=== PATIENT | male | born 1945 | race Caucasian/White ===

== ENCOUNTER 2020-06-28 16:40 | Inpatient (IN) | payer OTHER, MEDICARE ==
[~2020-06-28] VITALS: Ht 177.8 cm; Wt 88.9 kg
[2020-06-28] MEDS ORDERED: GLUCOTROL5 MG PO (16:52)
[2020-06-28] MEDS ORDERED: I-Vite1 EACH PO (16:52)
[2020-06-28] MEDS ORDERED: METF500 PO (16:52)
[2020-06-28] MEDS ORDERED: LISI5 PO (16:53)
[2020-06-28 17:15] LABS: BASOPHILS ABSOLUTE AUTO 0.06 K/mm3 (0.00-0.23); BASOPHILS PERCENT AUTO 1 % (0-2); EOSINOPHILS ABSOLUTE AUTO 0.13 K/mm3 (0.00-0.68); EOSINOPHILS PERCENT AUTO 1 % (0-6); Hematocrit 41.5 % (37.0-53.0); Hemoglobin 13.7 g/dL (13.5-17.5); IMMATURE GRAN ABSOLUTE AUTO 0.09 K/mm3 (0.00-0.10); IMMATURE GRAN PERCENT AUTO 1 % (0-1); LYMPHOCYTES PERCENT AUTO 21 % (21-46); MONOCYTES ABSOLUTE AUTO 0.92 K/mm3 (0.16-1.47); MONOCYTES PERCENT AUTO 8 % (4-13); Mean Corpuscular HGB 31.9 pg (26.0-34.0); Mean Corpuscular Volume 97 fL (80-100); Mean Platelet Volume 10.1 fL (9.1-12.4); NEUTROPHILS ABSOLUTE AUTO 8.36 K/mm3 (1.96-9.15); NEUTROPHILS PERCENT AUTO 69 % (41-73); Platelet Count 215 K/mm3 (150-400); RDW Coefficient Variation 12.6 % (11.7-14.2); RDW Standard Deviation 44.1 fL (35.1-46.3); Red Blood Cell Count 4.29 M/mm3 (4.30-5.90); White Blood Cell Count 12.16 K/mm3 (4.00-11.30)
[2020-06-28 17:31] LABS: Alanine Aminotransfer (ALT/SGP 32 U/L (12-78); Albumin, Blood 4.1 g/dL (3.4-5.0); Albumin/Globulin Ratio 1.1 (0.8-1.8); Alk Phos 66 U/L (50-136); Anion Gap 9 mmol/L (6-16); Aspartate Aminotrans (AST/SGOT 33 U/L (12-37); Bilirubin, Total 0.4 mg/dL (0.1-1.0); Blood Urea Nitrogen 20 mg/dL (8-24); Bun/Creatinine Ratio 23.8 (12.0-20.0); CO2, Blood 20 mmol/L (21-32); Calcium, Blood 9.3 mg/dL (8.5-10.1); Chloride, Blood 110 mmol/L (98-108); Creatinine, Blood 0.84 mg/dL (0.60-1.20); Ethanol (Alcohol), Blood, Med <3 mg/dL; Globulin, Blood 3.6 g/dL (2.2-4.0); Glomerular Filtration Rate >60 (60-); Glucose, Blood 236 mg/dL (70-99); Potassium, Blood 3.8 mmol/L (3.5-5.5); Sodium, Blood 139 mmol/L (136-145); Total Protein, Blood 7.7 g/dL (6.4-8.2)
[2020-06-28] MEDS ORDERED: GLIP5 PO (18:26)
--- NOTE | 2020-06-29 08:04 | NUR ---
SUMMARY PT ADMITTED S/P TRACTOR ACCIDENT. SEE ADMIT HX. PT RECEIVING IV AND PO PAIN MEDS.OOB WITH ASSIST FOR BRP. NAUSEA X1 MED WITH ZOFRAN. EQUAL RISE AND FALL BILAT WITH RESP.SHALLOW BREATHING DUE TO PAIN.RAZ.
--- NOTE | 2020-06-29 18:35 | NUR ---
PT HAS BEEN STABLE THIS SHIFT. PT REAMINS IN A LOT OF PAIN, MEDICATION ORDERS CHANGED THIS AM, PT REPORTS MORE EFFECTIVE. TAUGHT SPLINT COUGHING. PT COMPLIANT TO USING SPIROMETRY ENCOURAGED. ABLE TO WEAN O2 TO 1L. CONT BIOX REMAINS IN PLACE. BLOOD SUGARS ELEVATED, METFORMIN CONT TO HOLD BUT TAKING GLIPIZIDE. PT HAS OVERALL POOR APPETITE. DRINKING FLUIDS AND VOIDING WELL. PT WORKED WELL WITH NURSING STAFF TO AMBULATE AND SHOWER THIS AM. MIN ASSIST OOB. USES CALL LIGHT APPROPRIATELY NEEDED.
--- NOTE | 2020-06-30 06:07 | NUR ---
SHIFT SUMMARY BROKEN RIBS. AA0X4. PT REMAINED ON OXYGEN T/O NIGHT. 1.5 L NC. WHEN PT STOOD TO WALK TO BATHROOM AND RETURNED TO BED HE ATTEMPTED TO USE INCENTIVE SPIROMETER PT STARTED COUGHING AND REQUIRED AND INCREASE TO 2.5 L TO RECOVER. AFTER A FEW MINUTES RECOVERED AND WAS ABLE TO TITRATE BACK DOWN. LUNG SOUNDS CLEAR IN ALL [place] THIS AM BUT DIMINISHED IN RLL. PT HAS SOME DIFFICULTY COUGHING TO CLEAR PHLEGM. REPORTS NO PAIN WHEN HE IS NOT HAVING COUGHING FITS. PT STATES STRONG DESIRE TO DISCHARGE AND START WORK ON TUESDAY.
[2020-06-30] MEDS ORDERED: Percocet 5-3251 EACH PO ×2 (10:04→10:31)
[2020-06-30] MEDS ORDERED: Naproxen250 MG PO (10:04)
[2020-06-30] MEDS ORDERED: Robaxin-750750 MG PO (10:33)
--- NOTE | 2020-06-30 14:31 | NUR ---
DESATS ATTEMPTED ROOM AIR TWICE THIS AFTERNOON. PT UNABLE TO MAINTAIN 02 SATS >90%. PT DESATS TO 87-89%. ENCOURAGING MOBILITY AND I/S USE AND PT UP TO CHAIR COUGHING AND DEEP BREATHING. 0.5-1L 02 VIA NC TO MAINTAIN SATS >90%. WILL CONT TO PULMONARY TOILET.
--- NOTE | 2020-06-30 16:02 | NUR ---
SHIFT SUMMARY CONTINUING PULMONARY TOILET WITH PT. ENCOURAGING MOBILITY, I/S USE, COUGHING AND DEEP BREATHING. PT UP TO CHAIR TODAY. MULTIPLE ATTEMPTS ON RA TODAY AND SATS ONLY BETWEEN 87-89%. CURRENTLY WEANED TO 0.5L VIA NC AND SATS BETWEEN 90-92%. CONT BIOX PER ORDERS. ABD BINDER IN PLACE FOR SUPPORT AND 2 PERCOCETS FOR PAIN PRN. LUNGS CLEAR T/O, BUT SLIGHTLY DIMINISHED IN THE BASES. PT ALERT, ORIENTED, AND PLEASANT. POSSIBLE DISCHARGE HOME TOMORROW IF RESPIRATORY STATUS IMPROVES. CALL LIGHT WITHIN REACH.
--- NOTE | 2020-07-01 04:27 | NUR ---
SHIFT SUMMARY PT A/O X4, NEEDS ASSISTANCE TO GET OUT OF BED D/T PAIN FROM RIB FX'S, BUT ONCE UP PT IS IND IN ROOM AND TO BATHROOM. PAIN MANAGED WITH PO PAIN MED AND MUSCLE RELAXER. PT TOLERATING PO INTAKE AND VOIDING. HAS BEEN ON 0.5-1L O2 MOST OF SHIFT; WEANED OFF AT ABOUT 0300 AND MAINTAINING SAT ABOVE 92% ON RA. BIOX IN PLACE. NO ACUTE CHANGES.
--- NOTE | 2020-07-01 05:26 | NUR ---
O2 BACK ON TO MAINTAIN ABOVE 92% WHILE ASLEEP; O2 SAT ABOVE 92% ON RA WHILE AWAKE BUT DROPS TO 87% WHILE ASLEEP ON RA. CURRENTLY ON 1L.
--- NOTE | 2020-07-01 08:51 | NUR ---
DISCHARGE PT EDUCATED ON AND RECEIVED PRINTED DISCHARGE INSTRUCTIONS AND VERBALIZED AN UNDERSTANDING. SATS >92% ON RA. HARD RX FOR PERCOCET + ROBAXIN GIVEN TO PT. IV DC'D. INCENTIVE SPIROMETER PACKED UP WITH PT. PT GATHERING PERSONAL BELONGINGS AND WAITING FOR TO PICK HIM UP.
== END 2020-07-01 09:00 | disposition home or self-care (01) | DRG 185 ==
LOC: ER 16:40 → SURS 16:41 → ER 19:27 → SURS 19:27
PROVIDERS: Emergency Medicine; ADMIT Surgery
DX: S22.41XA Multiple fractures of ribs, right side, initial encounter for closed fracture (principal); I10 Essential (primary) hypertension; E11.9 Type 2 diabetes mellitus without complications; R40.2412 Glasgow coma scale score 13-15, at arrival to emergency department; S40.011A Contusion of right shoulder, initial encounter; S00.03XA Contusion of scalp, initial encounter; V89.0XXA Person injured in unspecified motor-vehicle accident, nontraffic, initial encounter; Z79.84 Long term (current) use of oral hypoglycemic drugs
CPT/HCPCS: 36415; 70450; 71260; 80053; 82947; 85025; 90471; 90714; 94762; 96361; 96372; 96374-59; 96375-59; 96376; 99285-25; G0378; G0480; J1170; J1650; J2405; J7030; Q9967

== ENCOUNTER 2020-12-01 12:12 | Emergency (ER) | payer MEDICARE, OTHER ==
[~2020-12-01] VITALS: Ht 177.8 cm; Wt 88.5 kg
[~2020-12-01 12:12] MED LIST: GLIP5 PO; GLUCOTROL5 MG PO; I-Vite1 EACH PO; LISI5 PO; METF500 PO; Naproxen250 MG PO; Percocet 5-3251 EACH PO; Robaxin-750750 MG PO
[2020-12-01] MEDS ORDERED: POTCHL20ER PO (14:12)
[2020-12-01] MEDS ORDERED: FURO40 PO (14:12)
== END 2020-12-01 14:28 | disposition home or self-care (01) ==
LOC: ER 12:12
DX: I11.0 Hypertensive heart disease with heart failure (principal); I50.9 Heart failure, unspecified; E11.9 Type 2 diabetes mellitus without complications; Z79.84 Long term (current) use of oral hypoglycemic drugs; Z79.899 Other long term (current) drug therapy; Z87.891 Personal history of nicotine dependence
CPT/HCPCS: 84484; 93005; 93010; 99285-25; A9270

== ENCOUNTER 2021-06-25 17:55 | Inpatient (IN) | payer OTHER ==
[~2021-06-25] VITALS: Ht 175.3 cm; Wt 81.2 kg
[~2021-06-25 17:55] MED LIST changes: +FURO40 PO; -METF500 PO; +POTCHL20ER PO
[2021-06-25 18:46] LABS: BASOPHILS ABSOLUTE AUTO 0.04 K/mm3 (0.00-0.23); BASOPHILS PERCENT AUTO 1 % (0-2); EOSINOPHILS ABSOLUTE AUTO 0.11 K/mm3 (0.00-0.68); EOSINOPHILS PERCENT AUTO 2 % (0-6); Hematocrit 37.1 % (37.0-53.0); Hemoglobin 12.2 g/dL (13.5-17.5); IMMATURE GRAN ABSOLUTE AUTO 0.02 K/mm3 (0.00-0.10); IMMATURE GRAN PERCENT AUTO 0 % (0-1); LYMPHOCYTES ABSOLUTE AUTO 1.18 K/mm3 (0.84-5.20); LYMPHOCYTES PERCENT AUTO 17 % (21-46); MONOCYTES ABSOLUTE AUTO 0.88 K/mm3 (0.16-1.47); MONOCYTES PERCENT AUTO 12 % (4-13); Mean Corpuscular HGB 31.2 pg (26.0-34.0); Mean Corpuscular HGB Conc 32.9 g/dL (31.5-36.5); Mean Corpuscular Volume 95 fL (80-100); Mean Platelet Volume 10.1 fL (9.1-12.4); NEUTROPHILS ABSOLUTE AUTO 4.86 K/mm3 (1.96-9.15); NEUTROPHILS PERCENT AUTO 69 % (41-73); Platelet Count 201 K/mm3 (150-400); RDW Coefficient Variation 13.4 % (11.7-14.2); RDW Standard Deviation 46.3 fL (35.1-46.3); Red Blood Cell Count 3.91 M/mm3 (4.30-5.90); White Blood Cell Count 7.09 K/mm3 (4.00-11.30)
[2021-06-25 18:59] LABS: Albumin, Blood 3.7 g/dL (3.4-5.0); Albumin/Globulin Ratio 0.9 (0.8-1.8); Bilirubin, Total 0.5 mg/dL (0.1-1.0); Calcium, Blood 9.3 mg/dL (8.5-10.1); Creatinine, Blood 1.2 mg/dL (0.60-1.20); Globulin, Blood 3.9 g/dL (2.2-4.0); Magnesium, Blood 2.4 mg/dL (1.6-2.4); Potassium, Blood 4.3 mmol/L (3.5-5.5); Total Protein, Blood 7.6 g/dL (6.4-8.2)
[2021-06-25] MEDS ORDERED: CYCLOBENZAPRINE5 MG PO (20:50)
[2021-06-25] MEDS ORDERED: JARDIANCE25 MG PO (20:51)
[2021-06-25] MEDS ORDERED: FURO40 PO (20:52)
[2021-06-25] MEDS ORDERED: Norco 5-325 Ta1 EACH PO (20:52)
[2021-06-25] MEDS ORDERED: INSULANPEN SC (20:53)
[2021-06-25] MEDS ORDERED: MAGNESIUM OXID400 M1 PO (20:54)
[2021-06-25] MEDS ORDERED: TOPROL XL25 MG PO (20:55)
[2021-06-25] MEDS ORDERED: METF500C PO (20:56)
[2021-06-25] MEDS ORDERED: POTA10T PO (20:57)
[2021-06-25] MEDS ORDERED: SPIR25 PO (20:58)
[2021-06-25] MEDS ORDERED: TORSE20 PO (20:58)
[2021-06-25] MEDS ORDERED: PRESERVISION A1 EAC1 PO (20:59)
[2021-06-25] MEDS ORDERED: ERGO400 PO (20:59)
[2021-06-25] MEDS ORDERED: MIRALAX17 G3 PO (21:00)
[2021-06-26 02:28] LABS: Bun/Creatinine Ratio 19.1 (12.0-20.0); Creatinine, Blood 1.41 mg/dL (0.60-1.20); Troponin I 0.216 ng/mL (0.000-0.040)
--- NOTE | 2021-06-26 05:45 | NUR ---
SHIFT SUMMARY- PT. NEW ADMIT FROM ED. A&OX4, INDEP IN THE ROOM. HAD NO COMPLAINTS OF PAIN OR DISCOMFORT T/O THE NIGHT. RESTED QUIETLY IN BED DURING THE NIGHT, NO APPARENT DISTRESS NOTED. VSS. CALL LIGHT WITHIN REACH AND SIDE RAILS UPX2. WILL CONT TO MONITOR.
--- NOTE | 2021-06-26 08:31 | NUR ---
spoke to waylon min tele.
--- NOTE | 2021-06-26 10:28 | NUR ---
PT A/O X3 PLEASANT TALKATIVE, PT DENIES CHEST PAIN, PRESSURE, TIGHTNESS. NO TELE. VERIFIED WITH DR LOVETT. H/R REG, MURMER PRESENT. LUNGS CLEAR T/O RESP EASY, UNLABORED. ON RA. BT X4 LAST BM YEST PER PT. VOIDS BATHROOM. INDEPENDANT.BED IN LOW POSITIOIN, CALL LITE IN REACH, CALLS APPROP
--- NOTE | 2021-06-26 18:40 | NUR ---
PT PLEASANT TODAY. NO C.O CHEST PAIN OR PRESSURE. LIME SLUDGE KILN OPERATOR IN AND DISCUSSED STRESS TEST FOR TOMORROW. HOWEVER, PT AND DR LOVETT STATES IS DONE THIS WEEK. DR WILL LOCATE RESULTS AND OKAY NO STRESS TEST TOMORROW. WILL LOOK FOR ORDERS. PT MAY RUN ELEVATED TROPONIN AT BASELINE PER DR LOVETT. NO NEW ORDERS AT THIS TIME. PT DOES ADMIT TO 4L O2 [facility] AT [id number]. CALLED RT FOR PLACEMENT. PT DOES NOT HAVE HOME UNIT AVAIL. BED IN LOW POSITION, CALL LITE IN REACH, CALLS APPROP
--- NOTE | 2021-06-27 00:29 | NUR ---
Tiago has denied chest pain or sob. Abd soft with hyperactive BTs but pt states miralax working. Dressing to rt lat foot dry and intact. Will change after shower in am.
--- NOTE | 2021-06-27 05:42 | NUR ---
Tiago states did not sleep well tonight. Denies chest pain or sob. No results from Miralax, given another dose this am.
[2021-06-27 05:59] LABS: Bun/Creatinine Ratio 23.6 (12.0-20.0); Calcium, Blood 9.3 mg/dL (8.5-10.1); Creatinine, Blood 1.27 mg/dL (0.60-1.20)
[2021-06-27] MEDS ORDERED: ACET325 PO (13:58)
[2021-06-27] MEDS ORDERED: LISI5 PO (13:59)
--- NOTE | 2021-06-27 15:35 | NUR ---
REVIEWED DISCHARGE WITH PT. IV PULLED INTACT BY ROBERT WASHINGTON. NO TELE. PT VERVALIZED UNDERSTANDING MEDS AND INST. WALKED PT TO DOOR AT 1530
== END 2021-06-27 17:09 | disposition home or self-care (01) | DRG 291 ==
LOC: ER 17:55 → MEDS 17:56
PROVIDERS: Family Medicine; Internal Medicine; Physician Assistant; ADMIT Internal Medicine
PROC: 5A09357 Assistance with Respiratory Ventilation, Less than 24 Consecutive Hours, Continuous Positive Airway Pressure (ICD-10-PCS; principal; 2021-06-27)
DX: I13.0 Hypertensive heart and chronic kidney disease with heart failure and stage 1 through stage 4 chronic kidney disease, or unspecified chronic kidney disease (principal); I50.23 Acute on chronic systolic (congestive) heart failure; N18.9 Chronic kidney disease, unspecified; E11.22 Type 2 diabetes mellitus with diabetic chronic kidney disease; E11.621 Type 2 diabetes mellitus with foot ulcer; L97.519 Non-pressure chronic ulcer of other part of right foot with unspecified severity; I25.10 Atherosclerotic heart disease of native coronary artery without angina pectoris; R94.39 Abnormal result of other cardiovascular function study; Z66 Do not resuscitate; Z87.891 Personal history of nicotine dependence; Z79.899 Other long term (current) drug therapy; Z79.4 Long term (current) use of insulin; Z79.891 Long term (current) use of opiate analgesic
CPT/HCPCS: 36415; 80048; 80053; 82947; 83036; 83735; 83880; 84484; 85025; 93005; 93010; 94660; 99285-25; A9270; G0378; J1650

== ENCOUNTER 2021-09-10 11:36 | Observation (INO) | payer OTHER ==
[~2021-09-10] VITALS: Ht 175.3 cm; Wt 86.5 kg
[~2021-09-10 11:36] MED LIST changes: +ACET325 PO; +ATHLETE'S FOO35.4 GM TOP; +ATOR20 PO; +CYCLOBENZAPRINE5 MG PO; +INSULANPEN SC; +JARDIANCE25 MG PO; +MAGNESIUM OXID400 M1 PO; +METF500C PO; +MIRALAX17 G3 PO; +Norco 5-325 Ta1 EACH PO; +POTA10T PO; +PRESERVISION A1 EAC1 PO; +SPIR25 PO; +TOPROL XL25 MG PO; +TORSE20 PO; +Vitamin D1000 UNI1 PO
[2021-09-10 12:30] LABS: BASOPHILS ABSOLUTE AUTO 0.07 K/mm3 (0.00-0.23); BASOPHILS PERCENT AUTO 1 % (0-2); EOSINOPHILS ABSOLUTE AUTO 0.15 K/mm3 (0.00-0.68); EOSINOPHILS PERCENT AUTO 2 % (0-6); Hematocrit 43.6 % (37.0-53.0); Hemoglobin 14.2 g/dL (13.5-17.5); IMMATURE GRAN ABSOLUTE AUTO 0.03 K/mm3 (0.00-0.10); IMMATURE GRAN PERCENT AUTO 0 % (0-1); LYMPHOCYTES ABSOLUTE AUTO 1.81 K/mm3 (0.84-5.20); LYMPHOCYTES PERCENT AUTO 24 % (21-46); MONOCYTES ABSOLUTE AUTO 0.61 K/mm3 (0.16-1.47); MONOCYTES PERCENT AUTO 8 % (4-13); Mean Corpuscular HGB 31.6 pg (26.0-34.0); Mean Corpuscular HGB Conc 32.6 g/dL (31.5-36.5); Mean Corpuscular Volume 97 fL (80-100); Mean Platelet Volume 9.5 fL (9.1-12.4); NEUTROPHILS ABSOLUTE AUTO 4.83 K/mm3 (1.96-9.15); NEUTROPHILS PERCENT AUTO 65 % (41-73); Platelet Count 230 K/mm3 (150-400); RDW Coefficient Variation 14.7 % (11.7-14.2); RDW Standard Deviation 52.7 fL (35.1-46.3)
[2021-09-10 12:57] LABS: Albumin, Blood 3.6 g/dL (3.4-5.0); Albumin/Globulin Ratio 0.9 (0.8-1.8); Bilirubin, Total 1.1 mg/dL (0.1-1.0); Bun/Creatinine Ratio 24.4 (12.0-20.0); Calcium, Blood 9.7 mg/dL (8.5-10.1); Creatinine, Blood 1.27 mg/dL (0.60-1.20); Globulin, Blood 4.2 g/dL (2.2-4.0); Total Protein, Blood 7.8 g/dL (6.4-8.2); Troponin I 0.227 ng/mL (0.000-0.040)
--- NOTE | 2021-09-10 18:18 | NUR ---
PT STILL HAVING SOB, IV ANTIBIOTICS D/C'D, UP IN RECLINER, DESATS WITH ACTIVITY. CONTINUE ON HIGH STANISLAV AND NON REBREATHER MASK NEEDED, HIGH STANISLAV SETTING 50L 100%, VISITED WITH FAMILY.NO ACUTE DISTRESS NOTED.
--- NOTE | 2021-09-10 18:33 | NUR ---
PT ADMITTED FROM ED INTO RM 326, ORIENTED TO ROOM AND CALL LIGHT, DENIED PAIN,ASSEEMENT DONE, MEDS RECONCILATION PASSED ON NEXT SHIFT PT NEEDED TO EAT.SOME REDNESS, SCABBED AREA NOTED ON RT FOOT, PICS IN CHART FOR THOROUGH VIEW. PT AAOX4, NO ACUTE DISTRESS NOTED. HX OF DM 2, HTN,HEART FAILURE,ANEMIA. CALL LIGHT WITHIN RANGE, MONITORING CONTNIUES.
[2021-09-11 05:20] LABS: BASOPHILS ABSOLUTE AUTO 0.06 K/mm3 (0.00-0.23); BASOPHILS PERCENT AUTO 1 % (0-2); EOSINOPHILS ABSOLUTE AUTO 0.15 K/mm3 (0.00-0.68); EOSINOPHILS PERCENT AUTO 2 % (0-6); Hematocrit 39.8 % (37.0-53.0); Hemoglobin 12.9 g/dL (13.5-17.5); IMMATURE GRAN ABSOLUTE AUTO 0.02 K/mm3 (0.00-0.10); IMMATURE GRAN PERCENT AUTO 0 % (0-1); LYMPHOCYTES ABSOLUTE AUTO 2.09 K/mm3 (0.84-5.20); LYMPHOCYTES PERCENT AUTO 29 % (21-46); MONOCYTES ABSOLUTE AUTO 0.69 K/mm3 (0.16-1.47); MONOCYTES PERCENT AUTO 10 % (4-13); Mean Corpuscular HGB 30.9 pg (26.0-34.0); Mean Corpuscular HGB Conc 32.4 g/dL (31.5-36.5); Mean Corpuscular Volume 95 fL (80-100); Mean Platelet Volume 9.8 fL (9.1-12.4); NEUTROPHILS ABSOLUTE AUTO 4.26 K/mm3 (1.96-9.15); NEUTROPHILS PERCENT AUTO 59 % (41-73); Platelet Count 213 K/mm3 (150-400); RDW Coefficient Variation 14.7 % (11.7-14.2); RDW Standard Deviation 50.6 fL (35.1-46.3); Red Blood Cell Count 4.17 M/mm3 (4.30-5.90); White Blood Cell Count 7.27 K/mm3 (4.00-11.30)
--- NOTE | 2021-09-11 05:26 | NUR ---
PT IS ANXIOUS AT TIMES BUT COMPLIANT. O2 INCREASED TO 4L NC. SAT 94% ON CONT PULSE OX. TELE SR 1ST DEGREE BLOCK. DENIES CHEST PAIN OR PALPITATION. WILL CONTINUE TO MONITOR.
[2021-09-11 05:54] LABS: Albumin/Globulin Ratio 0.8 (0.8-1.8); Bilirubin, Total 0.8 mg/dL (0.1-1.0); Bun/Creatinine Ratio 24.5 (12.0-20.0); Calcium, Blood 9.5 mg/dL (8.5-10.1); Creatinine, Blood 1.51 mg/dL (0.60-1.20); Globulin, Blood 3.9 g/dL (2.2-4.0); Magnesium, Blood 2.4 mg/dL (1.6-2.4); Potassium, Blood 3.7 mmol/L (3.5-5.5); Total Protein, Blood 6.9 g/dL (6.4-8.2)
--- NOTE | 2021-09-11 16:34 | NUR ---
SHIFT SUMMARY PT IS AOX4. PT DENIES PAIN, N/V, SOB. PT EVALUATED BY CARDIOLOGY TODAY WHO DETERMINED PT WILL BE TRANSFERRED TO [facility] FOR VALVE PLACEMENT. PT APPETITE IS GOOD. PT IS ONE ASSIST FOR TRANSFERS. PT IS IN BED, CALL LIGHT IN REACH, LOW POSITION.
[2021-09-11 17:17] LABS: SARS-Cov-2 (COVID-19) PCR, MMC NEGATIVE (NEGATIVE)
--- NOTE | 2021-09-11 18:36 | NUR ---
COBRA TRANSFER THIS RN GAVE REPORT TO FELIX SCANLON AT [facility] FOR TRANSFER. PT HAS IV IN LEFT AC FOR TRANSFER. PT WILL NOT BRING ANY MEDICAL EQUIPMENT AND SATS ARE 100% ON RA. THIS RN LEFT A MESSAGE TO PT'S ABOUT PT'S NEW ROOM NUMBER IN [place], [id number]. PT IS CURRENTLY IN BED, AWAITING TRANSPORT.
--- NOTE | 2021-09-11 19:42 | NUR ---
PT was dc cobra transfer with EMS medical transport to [place]. personal belongings sent.
== END 2021-09-11 19:30 | disposition short-term general hospital (02) ==
LOC: ER 11:36 → MEDS 11:37
PROVIDERS: Nurse Practitioner Acute Care; Physician Assistant; ADMIT Family Medicine
DX: I13.0 Hypertensive heart and chronic kidney disease with heart failure and stage 1 through stage 4 chronic kidney disease, or unspecified chronic kidney disease (principal); I50.23 Acute on chronic systolic (congestive) heart failure; I08.2 Rheumatic disorders of both aortic and tricuspid valves; E11.22 Type 2 diabetes mellitus with diabetic chronic kidney disease; N18.30 Chronic kidney disease, stage 3 unspecified; I27.20 Pulmonary hypertension, unspecified; I25.10 Atherosclerotic heart disease of native coronary artery without angina pectoris; R77.8 Other specified abnormalities of plasma proteins; D64.9 Anemia, unspecified; G47.33 Obstructive sleep apnea (adult) (pediatric); E78.5 Hyperlipidemia, unspecified; Z79.4 Long term (current) use of insulin; Z20.822 Contact with and (suspected) exposure to COVID-19
CPT/HCPCS: 36415; 71046; 80053; 82947; 83735; 83880; 84484; 85025; 93005; 93010; 94762; 96374; 99285-25; A9270; C8929; J1815; J1940; Q9957; U0004

== ENCOUNTER 2021-10-31 10:37 | Inpatient (IN) | payer OTHER ==
[~2021-10-31] VITALS: Ht 175.3 cm; Wt 73.9 kg
[2021-10-31 11:35] LABS: BASOPHILS ABSOLUTE AUTO 0.06 K/mm3 (0.00-0.23); BASOPHILS PERCENT AUTO 1 % (0-2); EOSINOPHILS ABSOLUTE AUTO 0.09 K/mm3 (0.00-0.68); EOSINOPHILS PERCENT AUTO 1 % (0-6); Hematocrit 46.4 % (37.0-53.0); Hemoglobin 15.5 g/dL (13.5-17.5); IMMATURE GRAN ABSOLUTE AUTO 0.07 K/mm3 (0.00-0.10); IMMATURE GRAN PERCENT AUTO 1 % (0-1); LYMPHOCYTES ABSOLUTE AUTO 1.65 K/mm3 (0.84-5.20); LYMPHOCYTES PERCENT AUTO 13 % (21-46); MONOCYTES ABSOLUTE AUTO 1.18 K/mm3 (0.16-1.47); MONOCYTES PERCENT AUTO 10 % (4-13); Mean Corpuscular HGB 30.6 pg (26.0-34.0); Mean Corpuscular HGB Conc 33.4 g/dL (31.5-36.5); Mean Corpuscular Volume 92 fL (80-100); Mean Platelet Volume 9.8 fL (9.1-12.4); NEUTROPHILS ABSOLUTE AUTO 9.26 K/mm3 (1.96-9.15); NEUTROPHILS PERCENT AUTO 75 % (41-73); Platelet Count 262 K/mm3 (150-400); RDW Coefficient Variation 13.4 % (11.7-14.2); RDW Standard Deviation 44.1 fL (35.1-46.3); Red Blood Cell Count 5.07 M/mm3 (4.30-5.90); White Blood Cell Count 12.31 K/mm3 (4.00-11.30)
[2021-10-31 11:59] LABS: Alanine Aminotransfer (ALT/SGP 15 U/L (12-78); Albumin/Globulin Ratio 0.5 (0.8-1.8); Alk Phos 120 U/L (50-136); Anion Gap 6 mmol/L (6-16); Aspartate Aminotrans (AST/SGOT 19 U/L (12-37); Bilirubin, Total 0.9 mg/dL (0.1-1.0); Blood Urea Nitrogen 34 mg/dL (8-24); Bun/Creatinine Ratio 30.1 (12.0-20.0); CO2, Blood 27 mmol/L (21-32); Chloride, Blood 99 mmol/L (98-108); Creatinine, Blood 1.13 mg/dL (0.60-1.20); Globulin, Blood 5.6 g/dL (2.2-4.0); Glomerular Filtration Rate >60 (60-); Glucose, Blood 262 mg/dL (70-99); Potassium, Blood 4.7 mmol/L (3.5-5.5); Sodium, Blood 132 mmol/L (136-145); Total Protein, Blood 8.6 g/dL (6.4-8.2)
--- NOTE | 2021-10-31 20:55 | NUR ---
PATIENT IS A NEW ADMIT FROM THE ED. ONE ASSIST TRANSFER FROM [facility] TO BED. AXOX 4 WITH FLAT AFFECT. GANGRENE TOES OF RIGHT FOOT. DENIES CHEST PAIN, SOB, AND N/V. ON ROOM AIR. ONE ASSIST WITH FWW TO BR. ORIENTED TO ROOM AND CALL LIGHT SYSTEM.
--- NOTE | 2021-10-31 23:47 | NUR ---
CONSENT TO PHOTOGRAPH SIGNED AND DIABETIC RIGHT FOOT WOUND PICTURE TAKEN AND IN CHART. TELEMTRY PLACED AND TECH REPORTS NSR 88. IV ABX INFUSING. PATIENT RESTING AND CALL LIGHT IN REACH.
--- NOTE | 2021-11-01 00:25 | NUR ---
RT IN TO SETUP CPAP PER ORDERS.
--- NOTE | 2021-11-01 03:42 | NUR ---
SHIFT SUMMARY PATIENT HAD NO ACUTE CHANGES OBSERVED. AXOX 4 AND SBA W/FWW TO BR. DIABETIC RIGHT FOOT GANGRENE TOES. WOUNDS PHOTOGRAPHED AND IN CHART. DENIES CHEST PAIN, SOB, AND N/V. PIV REMAINS INTACT. IV ABX INFUSED. CONSULT CALLED INTO DR NARANJO ANSWERING SERVICE. PROCESS IMPROVEMENT MANAGER REPORTS NSR 88. CBG 220. VSS/AFEBRILE. RT IN TO SETUP CPAP PER ORDERS. COOPERATIVE WITH CARE. CALL LIGHT IN REACH. BED IN LOWEST POSITION. WILL CONTINUE TO MONITOR UNTIL DAY SHIFT NURSE ASSUMES CARE.
[2021-11-01 04:43] LABS: Hematocrit 39.6 % (37.0-53.0); Hemoglobin 13.2 g/dL (13.5-17.5); Mean Corpuscular HGB 29.7 pg (26.0-34.0); Mean Corpuscular HGB Conc 33.3 g/dL (31.5-36.5); Mean Corpuscular Volume 89 fL (80-100); Mean Platelet Volume 9.2 fL (9.1-12.4); Platelet Count 277 K/mm3 (150-400); RDW Coefficient Variation 13.3 % (11.7-14.2); RDW Standard Deviation 43.6 fL (35.1-46.3); Red Blood Cell Count 4.45 M/mm3 (4.30-5.90); White Blood Cell Count 11.82 K/mm3 (4.00-11.30)
[2021-11-01 05:41] LABS: Anion Gap 10 mmol/L (6-16); Blood Urea Nitrogen 33 mg/dL (8-24); Bun/Creatinine Ratio 29.5 (12.0-20.0); CO2, Blood 28 mmol/L (21-32); Calcium, Blood 9.6 mg/dL (8.5-10.1); Chloride, Blood 100 mmol/L (98-108); Creatinine, Blood 1.12 mg/dL (0.60-1.20); Glomerular Filtration Rate >60 (60-); Glucose, Blood 150 mg/dL (70-99); Sodium, Blood 138 mmol/L (136-145)
--- NOTE | 2021-11-01 10:01 | NUR ---
DR LATHAM AT THE BEDSIDE- PLAN IS FOR PT TO BEE SEEN BY VASCULAR TO TRY TO IMPROVE FLOW THEN TO BE SEEN BY PODIATRY FOR TOE REMOVAL.
--- NOTE | 2021-11-01 10:57 | NUR ---
PT SBP 93 ON MORNING VITALS- HELD PO LASIX AND PO SPIRONOLACTONE FOR CLINICAL JUDGEMENT. WILL SPEAK TO DR CONDE ON MORNING ROUNDS.
--- NOTE | 2021-11-01 12:31 | NUR ---
SPOKE TO DR CONDE- PT SBP WAS 93 THIS AM SPIRONOLACTONE, LASIX AND POTASSIUM HELD. DR GONZALEZ AND MC COTEITH THE HOLD OF THESE MEDS.
--- NOTE | 2021-11-01 18:31 | NUR ---
SHHIFT SUMMARY- PT HAS HAD NO ACUTE CHANGE T/O THE SHIFT, PT CURRENTLY IN BED, CALL LIGHT IN REACH, IV ABX INFUSING. PT HAS BEEN INDEPENDENT TO THE BATHROOM TODAY. BP IMPROVED THIS EVENING SBP 114. PT HAS NO S&S OF PAIN OR DISTRESS AT THIS TIME. WILL CTM AND PASS ON TO NIGHT RN IN BEDSIDE REPORT.
--- NOTE | 2021-11-02 03:14 | NUR ---
SHIFT SUMMARY PATIENT HAD NO ACUTE CHANGES OBSERVED. AXOX 4 AND INDEPENDENT TO BR. PIV REMAINS INTACT. IV ABX INFUSED. VSS/AFEBRILE. DENIES PAIN, SOB, AND N/V. CHIN STRAP SEWER REPORTS NSR 93. USES CPAP AT NIGHT SETUP BY RT. CBG 179. COOPERATIVE WITH CARE. CALL LIGHT IN REACH. BED IN LOWEST POSITION. WILL CONTINUE TO MONITOR UNTIL DAY SHIFT NURSE ASSUMES CARE.
[2021-11-02 05:26] LABS: Hematocrit 38.2 % (37.0-53.0); Hemoglobin 12.8 g/dL (13.5-17.5); Mean Corpuscular HGB 30.8 pg (26.0-34.0); Mean Corpuscular HGB Conc 33.5 g/dL (31.5-36.5); Mean Corpuscular Volume 92 fL (80-100); Mean Platelet Volume 9.5 fL (9.1-12.4); Platelet Count 242 K/mm3 (150-400); RDW Coefficient Variation 13.4 % (11.7-14.2); RDW Standard Deviation 44.9 fL (35.1-46.3); Red Blood Cell Count 4.16 M/mm3 (4.30-5.90); White Blood Cell Count 11.53 K/mm3 (4.00-11.30)
[2021-11-02 06:24] LABS: Albumin, Blood 2.6 g/dL (3.4-5.0); Albumin/Globulin Ratio 0.6 (0.8-1.8); Bilirubin, Total 0.7 mg/dL (0.1-1.0); Bun/Creatinine Ratio 23.8 (12.0-20.0); C-REACTIVE PROTEIN, EXT RANGE 9.53 mg/dL (0.000-0.300); Calcium, Blood 9.5 mg/dL (8.5-10.1); Creatinine, Blood 1.3 mg/dL (0.60-1.20); Globulin, Blood 4.2 g/dL (2.2-4.0); Potassium, Blood 4.8 mmol/L (3.5-5.5); Total Protein, Blood 6.8 g/dL (6.4-8.2)
[2021-11-02 12:37] LABS: Influenza A, PCR NEGATIVE (NEGATIVE); Influenza B, PCR NEGATIVE (NEGATIVE); Resp Syncytial Virus, PCR NEGATIVE (NEGATIVE); SARS-Cov-2 (COVID-19) PCR, MMC NEGATIVE (NEGATIVE)
[2021-11-02 13:49] LABS: Vancomycin, Trough 10.4 ug/mL (5.0-10.0)
--- NOTE | 2021-11-02 14:57 | NUR ---
[facility] TO [facility] PT PICKED UP BY [facility]. REPORT GIVEN TO MORENITA COLON RN IN PCU. PT FAMILY AWARE OF PROCEDURE PER THE PT.
--- NOTE | 2021-11-02 19:15 | NUR ---
TRANSFER NOTE RECEIVED REPORT FROM FELIX WAY ON MEDICAL. BEDSIDE REPORT FROM DIE STORAGE CLERK. LEFT GROIN SITE C/D/I, NO BRUISING, BLEEDING OR HEMATOMA NOTED. ATTEMPTED TO ACCESS AT RIGHT ANKLE, TEGADERM IN PLACE. NO OTHER ACUTE CHANGES. REPORT GIVEN TO ONCOMING RN.
[2021-11-03 04:20] LABS: Hematocrit 35.6 % (37.0-53.0); Mean Corpuscular HGB 30.2 pg (26.0-34.0); Mean Corpuscular HGB Conc 33.7 g/dL (31.5-36.5); Mean Corpuscular Volume 90 fL (80-100); Platelet Count 256 K/mm3 (150-400); RDW Coefficient Variation 13.3 % (11.7-14.2); RDW Standard Deviation 43.5 fL (35.1-46.3); Red Blood Cell Count 3.97 M/mm3 (4.30-5.90); White Blood Cell Count 10.12 K/mm3 (4.00-11.30)
[2021-11-03 04:43] LABS: Alanine Aminotransfer (ALT/SGP 11 U/L (12-78); Albumin, Blood 2.4 g/dL (3.4-5.0); Albumin/Globulin Ratio 0.5 (0.8-1.8); Alk Phos 87 U/L (50-136); Anion Gap 9 mmol/L (6-16); Aspartate Aminotrans (AST/SGOT 13 U/L (12-37); Bilirubin, Total 0.5 mg/dL (0.1-1.0); Blood Urea Nitrogen 26 mg/dL (8-24); Bun/Creatinine Ratio 22.8 (12.0-20.0); CO2, Blood 26 mmol/L (21-32); Calcium, Blood 9.1 mg/dL (8.5-10.1); Chloride, Blood 104 mmol/L (98-108); Creatinine, Blood 1.14 mg/dL (0.60-1.20); Ferritin, Serum 666 ng/mL (26-388); Globulin, Blood 4.5 g/dL (2.2-4.0); Glomerular Filtration Rate >60 (60-); Glucose, Blood 147 mg/dL (70-99); Iron Serum 42 ug/dL (65-175); Potassium, Blood 3.8 mmol/L (3.5-5.5); Sodium, Blood 139 mmol/L (136-145); Total Iron Binding Capacity 150 ug/dL (250-450); Total Protein, Blood 6.9 g/dL (6.4-8.2)
--- NOTE | 2021-11-03 05:52 | NUR ---
SHIFT SUMMARY PATIENT FOUND TO BE A&OX4, WITH SOME GENERLAIZED WEAKNESS. BEDREST UNTIL 2229. SITE TO RIGHT GROIN C/D/I WITH NO SIGNS OF BLEEDING OR HEMATOMA NOTED. VSS. ON RA SATING MID 'S. REFUSED CPAP OVERNIGHT. NO PAIN OR DISTRESS NOTED. TOELRATING CARDIAC DIET WITHOUT ISSUE. USING URINAL TO VOID AND AFTER BEDREST COMPLETED WITH SBA TO BATHROOM. REFUSED DRESSING TO LEFT FOOT. NO ACUTE CONCERNS AT THIS TIME. GRACE CONTINUE PLAN OF CARE UNTIL REPORT GIVEN TO YARITZA WASHINGTON.
--- NOTE | 2021-11-03 07:11 | NUR ---
AMBULATORY INDEPENDENTLY TO BATHROOM TO VOID.
--- NOTE | 2021-11-03 09:47 | NUR ---
STAND BY ASSIST TO THE BATHROOM
--- NOTE | 2021-11-03 17:01 | NUR ---
TRANSFER NOTE PT A&Ox4: ANXIOUS BUT COOPERATIVE WITH CARE. PT RESTING IN BED, UP IND/SBA TO BATHROOM. PT DENIES PAIN, CHEST PAIN, NAUSEA AND DIZZINESS T/O SHIFT. LEFT GROIN SITE C/D/I; NO CHANGES T/O SHIFT. PEDAL PULSE PER DOPPLER. DR KENYON PLANS TO FOLLOW UP WITH PATIENT TODAY, PLANS FOR POSSIBLE PROCEDURE TOMORROW. PT RECEIVING IV ANTIBIOTICS. VSS. NO OTHER ACUTE CHAGNES NOTED. REPORT GIVEN TO RN ASSUMING CARE OF PATIENT. PT TRANSFERED TO ROOM 226 AT 1655.
--- NOTE | 2021-11-03 17:25 | NUR ---
PT. ARRIVE TO FLOOR AT 1700. TELEMETRY REPORTS NSR IN 90'S. PATIENT WITH NO COMPLAINT. IV SALINE LOCKED.OBSERVED R FOOT WITH BLACKENED LAST FEW TOES THAT WRAPS AROUND EDGE OF FOOT TO BALL OF FOOT. NOTED SOME BLACK TISSUE ON OUTSIDE OF R GREAT TOE. DR. WARD HERE TO SEE PATIENT.
--- NOTE | 2021-11-03 18:06 | NUR ---
DR. WARD IN AND TALK WITH FAMILY AND PT., LISANDRO ON SPEAKER PHONE. ORDER RECIEVED FOR ORTHO CONSULT.POSSIBLE SURGERY TOMORROW, PT. AWARE HE WILL BE NPO AT [facility]. DOPPLER USED FOR PEDAL PULSE W DR. WARD IN ROOM.
--- NOTE | 2021-11-03 20:52 | NUR ---
PT TOOK HIS BEDTIME INSULIN INDICATED, SNACKS AND FRUIT JUICE OFFERED AND ACCEPTED. PT IS AAO, RESTING WELL IN BED. CALL GALO PLACED NEAR HIM AND URGED TO CALL FOR HELP WHEN ASSISTANCE IS NEEDED HE IS MONITORED.
[2021-11-04 05:47] LABS: Hematocrit 35.7 % (37.0-53.0); Hemoglobin 12.1 g/dL (13.5-17.5); Mean Corpuscular HGB 30.5 pg (26.0-34.0); Mean Corpuscular HGB Conc 33.9 g/dL (31.5-36.5); Mean Corpuscular Volume 90 fL (80-100); Mean Platelet Volume 9.2 fL (9.1-12.4); Platelet Count 265 K/mm3 (150-400); RDW Coefficient Variation 13.2 % (11.7-14.2); RDW Standard Deviation 43.5 fL (35.1-46.3); Red Blood Cell Count 3.97 M/mm3 (4.30-5.90); White Blood Cell Count 12.04 K/mm3 (4.00-11.30)
[2021-11-04 06:18] LABS: Alanine Aminotransfer (ALT/SGP 12 U/L (12-78); Albumin, Blood 2.3 g/dL (3.4-5.0); Albumin/Globulin Ratio 0.5 (0.8-1.8); Alk Phos 87 U/L (50-136); Anion Gap 5 mmol/L (6-16); Aspartate Aminotrans (AST/SGOT 8 U/L (12-37); Bilirubin, Total 0.4 mg/dL (0.1-1.0); Blood Urea Nitrogen 24 mg/dL (8-24); Bun/Creatinine Ratio 23.3 (12.0-20.0); CO2, Blood 28 mmol/L (21-32); Calcium, Blood 8.9 mg/dL (8.5-10.1); Chloride, Blood 105 mmol/L (98-108); Creatinine, Blood 1.03 mg/dL (0.60-1.20); Globulin, Blood 4.8 g/dL (2.2-4.0); Glomerular Filtration Rate >60 (60-); Glucose, Blood 164 mg/dL (70-99); Potassium, Blood 3.8 mmol/L (3.5-5.5); Sodium, Blood 138 mmol/L (136-145); Total Protein, Blood 7.1 g/dL (6.4-8.2)
--- NOTE | 2021-11-04 06:36 | NUR ---
PT IN BED AT THIS TIME AND IS RESTING COMFORTABLY IN STABLE CONDITION. NO PAIN AT THIS TIME, ASSISTED WITH CARE AND ADLS, ASSISTED WITH BATHROOM AND TOILETING NEEDS, MEDICATED INDICATED. HE IS ENCOURAGED AND ASSISTED WITH REPOSITIONING TO ENHANCE COMFORT AND PROMOTE CIRCULATION, CALL LIGHT PLACED NEAR HIM AND ENCOURAGED TO CALL FOR HELP WHEN ASSISTANCE IS NEEDED HE IS MONITORED.
--- NOTE | 2021-11-04 14:53 | NUR ---
Pt. was alert, though relaxing in a darkened room. Pt. respectfully granted me an audience, but was not very interested in a spiritual convesation. Pt. was anticipating a surgery ("bridgetteight" he said). Established rapport through therutic listening. Pt. became more receptive of my presence as he spoke about his family and his service. Trust was established and confirmed when he invited me to return after the surgery. Pastoral prayer was given, and I will continue to monitor.
--- NOTE | 2021-11-04 16:41 | NUR ---
SHIFT SUMMARY: RIGHT FOOT GANGRENE PATIENT IS ALERT AND ORIENTED X4. VS ARE WNL AND IS ON RA. RIGHT FOOT HAS ESCAR ON 3/5 TOES. PATIENT IS ABLE TO MOVE HIS BIG RIGHT TOE BUT NOT THE OTHERS. PULSES ARE HEARD THROUGH THE DOPPLER CLEARLY. PATIENT DENIES PAIN EXCEPT FOR WHEN TAKING OFF HIS SOCKS. PATIENT REFUSES PAIN MEDICATIONS BUT KNOWS THEY ARE AVAILABLE PRN. CALLS APPROPRIATELY. CALL LIGHT WITHIN REACH. THE PLAN IS TO HAVE GRAHAM BARRY WITH DR. ECHAVARRIA. PATIENT IS ON BOARD WITH PROCEDURE.
--- NOTE | 2021-11-04 18:41 | NUR ---
PATIENT JUST LEFT WITH PACU FOR THE OR.
--- NOTE | 2021-11-04 19:39 | NUR ---
11/04/211938 Rene Lanier PT ON SCHEDULED ANTIBIOTICS
--- NOTE | 2021-11-05 01:27 | NUR ---
PT TRANSFERRED FROM OR BACK TO ROOM 226 ROUGHLY AT 2100. PT A/OX4, VSS. PAIN INCREASED. NORCO'S ORDERED AND GIVEN SEE EMAR. INCREASED PAIN OVER NIGHT AFTER NORCO ADMINISTRATION. FENTANYL ORDERED AND GIVEN. RLE DRY DRESSING C/D/I. YUE X1 NOTED. WCTM
--- NOTE | 2021-11-05 06:09 | NUR ---
SHIFT SUMMARY PT A/OX4, VSS. PAIN CONTROLLED WITH PRN PO/IV MEDS. DRY DRESSING TO RLE C/D/I. YUE X1 INTACT. 47CC'S OUTPUT SINCE COMING BACK FROM OR AT ROUGHLY 2100. VOIDING WITHOUT COMPLICATION. IV FLUIDS/ANTIBIOTICS INFUSING PER ORDER.
[2021-11-05 06:35] LABS: BASOPHILS ABSOLUTE AUTO 0.03 K/mm3 (0.00-0.23); BASOPHILS PERCENT AUTO 0 % (0-2); EOSINOPHILS PERCENT AUTO 0 % (0-6); Hematocrit 37.9 % (37.0-53.0); Hemoglobin 12.3 g/dL (13.5-17.5); IMMATURE GRAN ABSOLUTE AUTO 0.17 K/mm3 (0.00-0.10); IMMATURE GRAN PERCENT AUTO 1 % (0-1); LYMPHOCYTES ABSOLUTE AUTO 0.65 K/mm3 (0.84-5.20); LYMPHOCYTES PERCENT AUTO 5 % (21-46); MONOCYTES ABSOLUTE AUTO 0.26 K/mm3 (0.16-1.47); MONOCYTES PERCENT AUTO 2 % (4-13); Mean Corpuscular HGB 30.2 pg (26.0-34.0); Mean Corpuscular HGB Conc 32.5 g/dL (31.5-36.5); Mean Corpuscular Volume 93 fL (80-100); Mean Platelet Volume 9.2 fL (9.1-12.4); NEUTROPHILS ABSOLUTE AUTO 11.05 K/mm3 (1.96-9.15); NEUTROPHILS PERCENT AUTO 91 % (41-73); Platelet Count 317 K/mm3 (150-400); RDW Coefficient Variation 13.4 % (11.7-14.2); RDW Standard Deviation 45.9 fL (35.1-46.3); Red Blood Cell Count 4.07 M/mm3 (4.30-5.90); White Blood Cell Count 12.16 K/mm3 (4.00-11.30)
--- NOTE | 2021-11-05 09:57 | NUR ---
Pt. was just starting to doze off. Had surgery previous evening and had not slept. I offered to excuse myself and come back later in the day. Pt. was thankful and asked me to close the door.
--- NOTE | 2021-11-05 12:09 | NUR ---
DR. PANTOJA IN PT ROOM AT ABOUT 1150. YUE DRAIN DC'D AT THIS TIME.
--- NOTE | 2021-11-05 18:42 | NUR ---
SUMMARY: PT IS POD1 R BKA. A/O, VSS, TELE STABLE. SURGICAL SITE WNL. PT WORKED WITH PT/OT TODAY AND ABLE TO AMBULATE TO COMMODE WITH FWW, SEE PT/OT NOTES. PT HAS FLAT AFFECT, ASKED SERVERAL TIMES IF WOULD LIKE A BED BATH TODAY, PT REFUSED. PAIN APPEARS TO BE MANAGED WITH 2 NARCO AND 25MCG OF IV FENTANYAL. ANTIBIOTICS INFUSED. NO ACUTE SAFETY CONCERNS, WILL REPORT TO UMAIR WASHINGTON.
--- NOTE | 2021-11-06 06:11 | NUR ---
SHIFT SUMMARY Pt A/Ox4, VSS. Dressing to RLE c/d/i. Pain controlled with PRN medications. IV fluids/antibiotics infused overnight per orders. No acute events overnight.
--- NOTE | 2021-11-06 17:10 | NUR ---
PT REMAINS A&OX4. VSS. NO C/O PAIN. AFEBRILE. AUO. NO BM. TOLERATING CURRENT DIET. R BKA DRESSING CHANGED BY MD TODAY- PER MD, HEALING WNL. IVF AND ABX DC'D. POSSIBLE DISCHARGE TO SNF IN NEXT FEW DAYS. WORKED WITH OT- AMBULATED TO BATHROOM WITH FWW, MIN ASSIST, EXTREMELY FATIGUED AFTER. FREQUENT ROUNDS TO ENSURE PT SAFETY. PT IN NO APPARENT DISTRESS AT THIS TIME. WILL CONTINUE TO MONITOR UNTIL TRANSFER OF CARE TO ONCOMING RN.
--- NOTE | 2021-11-07 00:06 | NUR ---
Pt having unable to sleep. Requesting medications for sleep. Dr. Levine made aware. Orders for PRN sleep medications. Meds given see JAN. WCTM
[2021-11-07 04:04] LABS: Hematocrit 33.9 % (37.0-53.0); Hemoglobin 11.2 g/dL (13.5-17.5); Mean Corpuscular HGB 30.1 pg (26.0-34.0); Mean Corpuscular Volume 91 fL (80-100); Mean Platelet Volume 8.8 fL (9.1-12.4); Platelet Count 311 K/mm3 (150-400); RDW Coefficient Variation 13.4 % (11.7-14.2); RDW Standard Deviation 43.8 fL (35.1-46.3); Red Blood Cell Count 3.72 M/mm3 (4.30-5.90); White Blood Cell Count 11.27 K/mm3 (4.00-11.30)
[2021-11-07 04:21] LABS: Anion Gap 8 mmol/L (6-16); Blood Urea Nitrogen 19 mg/dL (8-24); Bun/Creatinine Ratio 21.3 (12.0-20.0); CO2, Blood 28 mmol/L (21-32); Calcium, Blood 8.4 mg/dL (8.5-10.1); Chloride, Blood 105 mmol/L (98-108); Creatinine, Blood 0.89 mg/dL (0.60-1.20); Glomerular Filtration Rate >60 (60-); Glucose, Blood 134 mg/dL (70-99); Potassium, Blood 4.3 mmol/L (3.5-5.5); Sodium, Blood 141 mmol/L (136-145)
--- NOTE | 2021-11-07 18:21 | NUR ---
SHIFT SUMMARY PT A&OX4, VSS/RA/CBG CNI, TELE NSR @ 80 BPM. POD3 R BKA, DRESSING CDI. DENIES PAIN. HOMERO PO. AMB W/FWW & GB TO BRP, UP TO CHAIR FOR BREAKFAST. REPOSITIONS SELF WELL IN BED. WILL REPORT TO ONCOMING NOC RN.
--- NOTE | 2021-11-08 06:37 | NUR ---
SHIFT SUMMARY LYING IN SEMI FOWLERS FOR COMFORT. AAO X4, MARTÍNEZ, FOLLOWS ALL COMMANDS, AND IS COOPERATIVE WITH CARE. HAS CALLED OUT FOR ASSISTANCE THROUGHOUT THE SHIFT, BUT WHEN HE WOKE UP TO HAVE BM HE WAS UNABLE TO CALL FOR HELP AND AMBULATED HIMSELF TO COMMODE, ASSISTED BACK TO BED USING FWW AND GB. POD #4 FOR RIGHT BKA, DRESSINGS ARE C/D/I. DENIES FURTHER NEEDS OR WANTS AT THIS TIME. SAFETY MEASURES IN PLACE. WILL CONTINUE TO MONITOR AND ADDRESS NEEDS THEY ARISE. WILL GIVE HAND OFF TO ONCOMING SHIFT USING SBAR DURING BEDSIDE REPORT.
--- NOTE | 2021-11-08 14:56 | NUR ---
SHIFT SUMMARY PT A&OX4, VSS/RA, TELE NSR @ 85 BPM, CBG COV PER EMAR, BIOX ON. POD4 R BKA, DRESSINGS CDI, ELEVATED. AMB W/FWW & GB TO CHAIR/BSC/BED WITH 1 PP MOD ASSIST. DENIES SIGNS/SYMPTOMS OF PAIN OR DISTRESS AT THIS TIME. OOB/UP TO CHAIR T/O SHIFT. HOMERO PO ADA DIET. VOIDING WELL, URINAL; BM+. WILL REPORT TO ONCOMING NOC RN.
--- NOTE | 2021-11-09 04:28 | NUR ---
SHIFT SUMMARY A/OX4, COOPERATIVE WITH CARE. 1 ASSIST WITH FWW AND GB. DENIES PAIN OR SOB. VSS, NO ACUTE CHANGES AT THIS TIME. BED IN LOWEST POSITION WITH CALL LIGHT IN REACH. WILL CONTINUE TO MONITOR AND REPORT TO ONCOMING RN.
--- NOTE | 2021-11-09 18:10 | NUR ---
PATIENT WORKED WITH THERAPY TODAY AND DID WELL. DR PANTOJA CHANGED PATIENTS DRESSING TODAY TO RIGHT STUMP. PATIENT TOLERATED WELL. NO SIGNS OR SYMPTOMS ACUTE DISTRESS NOTED. CALL LIGHT AND WATER IN EASY REACH. ABLE TO MAKE NEEDS AND WANTS KNOWN. WILL MONITOR.
--- NOTE | 2021-11-10 03:53 | NUR ---
SHIFT SUMMARY 75 YO M WITH RIGHT BKA, POD #5. DENIES PAIN. A&O X4, USES URINAL BEDSIDE. WILL TRANSFER A STAND AND PIVOT WITH WALKER AND GAIT BELT. DRESSING IN PLACE ON RBKA STUMP SOCK, C/D/I. MONITORED VIA TELEMETRY, FOOD ADVISER REPORT SINUS TACHY 106, WITH PVC'S. ROOM AIR. PLEASANT WITH STAFF. BLOOD SUGARS AC/HS, ADA DIET. PLAN IS TO D/C TO SNF, DRESSING CHANGES EVERY OTHER DAY OR DAILY, NEEDED.
--- NOTE | 2021-11-10 18:17 | NUR ---
PATIENT CURRENTLY IN BED WITH NO SIGNS OR SYMPTOMS ACUTE DISTRESS NOTED. CALL LIGHT AND WATER IN EASY REACH. PATIENT HAS VERY POOR APPETITE, ENCOURGAGED TO EAT BUT REFUSES OFTEN. HIS BRINGS ITEMS IN FOR HIM TO SNACK ON, HE SAYS HE EATS THAT. MEDICATED FOR PAIN TODAY PER ORDERS-SEE EMAR. WORKED WITH PT TODAY AND STOOD 3 TIMES. WALKING BOOT ON, WOUND VAC TO LEFT ANKLE ON AND WORKING WITH SEROSANG DRAINAGE NOTED. NAUSEA MED GIVEN ONCE TODAY. PATIENT TO GET A PICC LINE WITH STAFF ARE AVAILBLE TO PLACE ONE, HE WILL DISCHARGE TO SNF TOMORROW AFTER PICC PLACEMENT FOR CONTINUED CARE. PATIENT AWARE AND AGREEABLE TO PLAN OF CARE. WILL CONTINUE TO MONITOR.
--- NOTE | 2021-11-10 18:21 | NUR ---
PATIENT CURRENTLY SITTING EDGE OF BED WITH NO SIGNS OR SYMPTOMS ACUTE DISTRESS NOTED. CALL LIGHT AND WATER IN EASY REACH. ABLE TO MAKE NEEDS AND WANTS KNOWN. [facility]. AND ECHO WAS DONE AT BEDSIDE TODAY TO CHECK HIS CURRENT EF. DEPENDENT ON RESULTS WHETHER OR NOT [facility]. NO COMPLAINTS OF PAIN VOICED. DR PANTOJA SAW PATIENT TODAY, DID NOT CHANGE DRESSING TO RIGHT STUMP. NO OTHER ISSUES TO NOTE FROM TODAY. WILL MONITOR.
--- NOTE | 2021-11-11 05:51 | NUR ---
ALERT AND ORIENTED X'S 4. DENIES PAIN OR DISCOMFORT. DRESSING INTACT TO RBKA. TELE BTW 118 S/T - 80 S/R. SLEPT WELL THROUGH NIGHT, SAFETY MAINTAINED, CALL GALO IN REACH.
[2021-11-11 10:15] LABS: Influenza A, PCR NEGATIVE (NEGATIVE); Influenza B, PCR NEGATIVE (NEGATIVE); Resp Syncytial Virus, PCR NEGATIVE (NEGATIVE); SARS-Cov-2 (COVID-19) PCR, MMC NEGATIVE (NEGATIVE)
--- NOTE | 2021-11-11 11:30 | NUR ---
THIS NURSE HAS ATTEMPTED TO CALL [place] [facility] TO GIVE REPORT FIVE TIMES WITH IT GOING TO VOICEMAIL. HAVE LEFT A MESSAGE FOR HER TO CALL THE FLOOR SO THIS NURSE CAN GIVE REPORT. PATIENT WILL BE PICKED UP AT 1230 TODAY. WILL CONTINUE TO CALL TO GIVEN REPORT
--- NOTE | 2021-11-11 12:19 | NUR ---
DISCHARGE: REPORT CALLED TO FELIX WHITE AT THE [place] AT THIS TIME. AWAITING TRANSPORT TO ARRIVE. NO SIGNS OR SYMPTOMS ACUTE DISTRESS NOTED.
[2021-11-28] MEDS ORDERED: Aspir 8181 MG PO ×2 (14:28→14:31)
[2021-11-28] MEDS ORDERED: ATOR40TA PO (14:28)
[2021-11-28] MEDS ORDERED: CLOP75 PO ×2 (14:29→14:32)
[2021-11-28] MEDS ORDERED: LEVO750 PO (14:33)
[2021-11-28] MEDS ORDERED: BASAGLAR K100 UNIT/1 SC (14:33)
[2021-11-28] MEDS ORDERED: Prinivil10 MG PO (14:34)
[2021-11-28] MEDS ORDERED: MAGNESIUM OXID500 MG PO (14:34)
[2021-11-28] MEDS ORDERED: METO50ER PO (14:35)
[2021-11-28] MEDS ORDERED: METFORMIN HCL500 MG PO (14:37)
[2021-11-28] MEDS ORDERED: ALDACTONE25 MG PO (14:38)
[2021-11-28] MEDS ORDERED: SENNA LAXATIVE8.6 MG PO (14:38)
[2021-11-28] MEDS ORDERED: ACET500 PO (14:40)
[2021-11-28] MEDS ORDERED: OXYC5 PO (14:44)
[2021-11-28] MEDS ORDERED: MIRALAX17 GM PO (14:45)
[2021-11-28] MEDS ORDERED: VIT1CAPS12 PO (14:47)
[2021-11-30] MEDS ORDERED: CEFD300 PO (14:27)
[2021-11-30] MEDS ORDERED: VISBIOME 112.51 EACH PO (14:27)
== END 2021-11-11 12:40 | DRG 854 ==
LOC: ER 10:37 → MEDS 14:16 → ERHOLD 14:16 → SURS 14:16 → MEDS 18:53 → PCU 11-02 14:57 → SURS 11-03 17:26
PROVIDERS: Emergency Medicine; Internal Medicine; Nurse Practitioner Acute Care; Orthopaedic Surgery; Radiology Diagnostic Radiology; ADMIT Internal Medicine
PROC: 047K3ZZ Dilation of Right Femoral Artery, Percutaneous Approach (ICD-10-PCS; principal; 2021-11-02)
PROC: 04CT3ZZ Extirpation of Matter from Right Peroneal Artery, Percutaneous Approach (ICD-10-PCS; 2021-11-02)
PROC: 047P3ZZ Dilation of Right Anterior Tibial Artery, Percutaneous Approach (ICD-10-PCS; 2021-11-02)
PROC: 047M3ZZ Dilation of Right Popliteal Artery, Percutaneous Approach (ICD-10-PCS; 2021-11-02)
PROC: 047T3ZZ Dilation of Right Peroneal Artery, Percutaneous Approach (ICD-10-PCS; 2021-11-02)
PROC: 3E05317 Introduction of Other Thrombolytic into Peripheral Artery, Percutaneous Approach (ICD-10-PCS; 2021-11-02)
PROC: B41DYZZ Fluoroscopy of Aorta and Bilateral Lower Extremity Arteries using Other Contrast (ICD-10-PCS; 2021-11-02)
PROC: 0Y6H0Z3 Detachment at Right Lower Leg, Low, Open Approach (ICD-10-PCS; 2021-11-04)
DX: A41.9 Sepsis, unspecified organism (principal); E11.52 Type 2 diabetes mellitus with diabetic peripheral angiopathy with gangrene; I70.261 Atherosclerosis of native arteries of extremities with gangrene, right leg; I50.22 Chronic systolic (congestive) heart failure; I13.0 Hypertensive heart and chronic kidney disease with heart failure and stage 1 through stage 4 chronic kidney disease, or unspecified chronic kidney disease; L03.115 Cellulitis of right lower limb; Z20.822 Contact with and (suspected) exposure to COVID-19; Z66 Do not resuscitate; D63.1 Anemia in chronic kidney disease; I08.0 Rheumatic disorders of both mitral and aortic valves; N18.2 Chronic kidney disease, stage 2 (mild); I25.10 Atherosclerotic heart disease of native coronary artery without angina pectoris; E78.5 Hyperlipidemia, unspecified; G47.33 Obstructive sleep apnea (adult) (pediatric); Z90.49 Acquired absence of other specified parts of digestive tract; Z95.0 Presence of cardiac pacemaker; Z79.899 Other long term (current) drug therapy; Z79.4 Long term (current) use of insulin; Z79.84 Long term (current) use of oral hypoglycemic drugs
CPT/HCPCS: 0241U; 36140; 36415; 37211; 37224; 37229; 37232; 73590; 73630; 75625; 75716; 75774; 76937; 80048; 80053; 80202; 82728; 82947; 83540; 83550; 83605; 83880; 85025; 85027; 85651; 86140; 87040; 87070; 87077; 87147; 87186; 87205; 88307; 88311; 93308; 93925; 94660; 94762; 96365; 96366; 96367; 96376; 97110; 97116; 97161; 97166; 97530; 97535; 99152; 99153; 99285-25; A9270; C1724; C1725; C1760; C1769; C1887; C1894; J0171; J1100; J1644; J1650; J1815; J2250; J2370; J2405; J2543; J2704; J2997; J3010; J3370; J7030; J7050; Q9967

== ENCOUNTER 2022-02-16 08:31 | Day surgery (SDC) | payer OTHER, MEDICARE ==
[~2022-02-16] VITALS: Ht 175.3 cm; Wt 80.9 kg
[~2022-02-16 08:31] MED LIST changes: +ACET500 PO; +ALDACTONE25 MG PO; +ATOR40TA PO; +Aspir 8181 MG PO; +BASAGLAR K100 UNIT/1 SC; +CEFD300 PO; +CLOP75 PO; +ENTRESTO 24 MG1 EACH PO; +FERSU300 PO; +FOLI1 PO; +LEVO750 PO; +MAGNESIUM OXID500 MG PO; +METFORMIN HCL500 MG PO; +METO50ER PO; +MIRALAX17 GM PO; +Nitrostat0.3 MG SL; +OXYC5 PO; +Prinivil10 MG PO; +SENNA LAXATIVE8.6 MG PO; +VISBIOME 112.51 EACH PO; +VIT1CAPS12 PO
[2022-02-16] MEDS ORDERED: ASCO500 PO (09:03)
[2022-02-16] MEDS ORDERED: ASPI81CH PO (09:03)
[2022-02-16] MEDS ORDERED: CLOP75 PO (09:04)
[2022-02-16] MEDS ORDERED: Lisinopril2.5 MG PO (09:06)
[2022-02-16] MEDS ORDERED: MIRALAX17 GM PO (09:07)
[2022-02-16] MEDS ORDERED: SENN187 PO (09:07)
[2022-02-16] MEDS ORDERED: SPIR25 PO (09:08)
[2022-02-16] MEDS ORDERED: XARELTO2.5 MG PO (13:13)
--- NOTE | 2022-02-16 14:21 | NUR ---
PT R GROIN SITE STABLE. UP AND DRESSED WITH ASSIST. DISCHARGE INSTRUCTIONS REVIEWED WITH PT, VERBALIZES UNDERSTANDING OF INSTRUCTIONS. SALINE LOCK REMOVED WITH CATHETER INTACT. PT TO PRIVATE VEHICLE PER W/C WITH ONE STAFF.
== END 2022-02-16 14:10 | disposition home or self-care (01) ==
LOC: MHTC 08:31
DX: E11.51 Type 2 diabetes mellitus with diabetic peripheral angiopathy without gangrene (principal); I70.223 Atherosclerosis of native arteries of extremities with rest pain, bilateral legs; E11.22 Type 2 diabetes mellitus with diabetic chronic kidney disease; N18.30 Chronic kidney disease, stage 3 unspecified; I25.10 Atherosclerotic heart disease of native coronary artery without angina pectoris; I50.22 Chronic systolic (congestive) heart failure; E11.42 Type 2 diabetes mellitus with diabetic polyneuropathy; Z89.511 Acquired absence of right leg below knee; Z87.891 Personal history of nicotine dependence; Z79.4 Long term (current) use of insulin
CPT/HCPCS: 37229; 37232; 75716; 75774; 76937; 85347; 99152; 99153; C1725; C1760; C1769; C1885; C1887; C1894; J1644; J2250; J3010; J7030; J7050; Q9967

== ENCOUNTER 2022-04-22 22:25 | Emergency (ER) | payer OTHER ==
[~2022-04-22] VITALS: Ht 175.3 cm; Wt 70.3 kg
[~2022-04-22 22:25] MED LIST changes: +ASCO500 PO; +ASPI81CH PO; +Lisinopril2.5 MG PO; +SENN187 PO; +XARELTO2.5 MG PO
[2022-04-22 22:49] LABS: BASOPHILS ABSOLUTE AUTO 0.11 K/mm3 (0.00-0.23); BASOPHILS PERCENT AUTO 1 % (0-2); EOSINOPHILS ABSOLUTE AUTO 0.08 K/mm3 (0.00-0.68); EOSINOPHILS PERCENT AUTO 1 % (0-6); Hematocrit 41.5 % (37.0-53.0); IMMATURE GRAN ABSOLUTE AUTO 0.04 K/mm3 (0.00-0.10); IMMATURE GRAN PERCENT AUTO 1 % (0-1); LYMPHOCYTES PERCENT AUTO 17 % (21-46); MONOCYTES ABSOLUTE AUTO 0.71 K/mm3 (0.16-1.47); MONOCYTES PERCENT AUTO 9 % (4-13); Mean Corpuscular HGB 30.5 pg (26.0-34.0); Mean Corpuscular HGB Conc 31.3 g/dL (31.5-36.5); Mean Corpuscular Volume 97 fL (80-100); Mean Platelet Volume 9.9 fL (9.1-12.4); NEUTROPHILS ABSOLUTE AUTO 6.06 K/mm3 (1.96-9.15); NEUTROPHILS PERCENT AUTO 72 % (41-73); Platelet Count 234 K/mm3 (150-400); RDW Coefficient Variation 17.1 % (11.7-14.2); RDW Standard Deviation 60.5 fL (35.1-46.3); Red Blood Cell Count 4.26 M/mm3 (4.30-5.90)
[2022-04-22 23:08] LABS: Albumin, Blood 3.9 g/dL (3.4-5.0); Bilirubin, Total 1.1 mg/dL (0.1-1.0); Bun/Creatinine Ratio 29.4 (12.0-20.0); Calcium, Blood 9.8 mg/dL (8.5-10.1); Creatinine, Blood 1.63 mg/dL (0.60-1.20); Magnesium, Blood 2.4 mg/dL (1.6-2.4); Potassium, Blood 4.7 mmol/L (3.5-5.5); Total Protein, Blood 7.9 g/dL (6.4-8.2)
== END 2022-04-23 08:05 | disposition home or self-care (01) ==
LOC: ER 22:25
PROVIDERS: Physician Assistant
DX: I11.0 Hypertensive heart disease with heart failure (principal); I50.20 Unspecified systolic (congestive) heart failure; R05.9 Cough, unspecified; E11.9 Type 2 diabetes mellitus without complications; I25.10 Atherosclerotic heart disease of native coronary artery without angina pectoris; Z79.01 Long term (current) use of anticoagulants; Z79.899 Other long term (current) drug therapy; Z79.02 Long term (current) use of antithrombotics/antiplatelets; Z79.4 Long term (current) use of insulin; Z79.82 Long term (current) use of aspirin; Z95.4 Presence of other heart-valve replacement; Z89.511 Acquired absence of right leg below knee
CPT/HCPCS: 71045; 80053; 83735; 83880; 84484; 85025; 93005; 93010; 96374; 99285-25; A9270; J1940

== ENCOUNTER 2022-05-22 13:01 | Emergency (ER) | payer OTHER ==
[~2022-05-22] VITALS: Ht 175.3 cm; Wt 70.3 kg
== END 2022-05-22 15:07 | disposition home or self-care (01) ==
LOC: ER 13:01
DX: S00.01XA Abrasion of scalp, initial encounter (principal); V00.841A Fall from standing electric scooter, initial encounter; I50.9 Heart failure, unspecified; E11.9 Type 2 diabetes mellitus without complications
CPT/HCPCS: 99283